=== PATIENT | female | born 1955 | race Caucasian/White ===

== ENCOUNTER 2023-06-07 12:53 | Emergency (ER) | payer MEDICARE, SELFPAY ==
[2023-06-07 13:35] VITALS: BP 167/82; PULSE 89; RESP 18; TEMP 36.6; O2SAT 98
--- NOTE | 2023-06-07 14:18 | ED.EAR ---
HPI - Ear Problem General Chief complaint: Ear Stated complaint: bilateral ear discomfort Time Seen by Provider: 06/07/23 14:10 Source: patient and RN notes reviewed Mode of arrival: ambulatory Limitations: no limitations History of Present Illness HPI Narrative: Patient presents today complaining of bilateral ear muffling. 2-3 days ago she developed some dizziness, lasted for 24-48 hours before completely resolving. Yesterday she developed muffling in both of her ears. Denies pain or drainage. She denies any additional symptoms to include cough, congestion, rhinorrhea, sinus pressure. She has been taking some ibuprofen without relief of symptoms. Related Data Home Medications Medication Instructions Recorded Confirmed pravastatin 40 mg tablet 40 mg PO DAILY 06/07/23 06/07/23 Allergies Allergy/AdvReac Type Severity Reaction Status Date / Time No Known Allergies Allergy Verified 06/07/23 14:24 Review of Systems Review of Systems: CONSTITUTIONAL: Denies body aches, fever, chills, or sweats. EYES: Denies visual changes, redness, or discharge. ENT: Denies rhinorrhea, congestion, sore throat, or otalgia.+ ear muffling CARDIOVASCULAR: Denies chest pain, palpitations, or edema. RESPIRATORY: Denies cough or dyspnea. GASTROINTESTINAL: Denies abdominal pain, nausea, vomiting, or diarrhea. GENITOURINARY: Denies dysuria or hematuria. SKIN: Denies rash, itching, or wounds. MUSCULOSKELETAL: Denies back pain, joint pain, or myalgia. NEUROLOGIC: Denies headache, numbness, tingling, or weakness. PSYCH: Denies depression or anxiety. [facility] Past Medical History Medical History (Updated 06/07/23 @ 14:23 by Madiha Barajas, [facility], ) High cholesterol Comments At time of signature, I have reviewed and agree with nursing past medical, surgical, social and family history unless otherwise noted. Please see nursing chart for further information. There is no relevant family history pertinent to the presenting complaint Exam Narrative: GENERAL: Well-appearing, well-nourished, and in no acute distress. HEAD: Normocephalic, atraumatic. EYES: EOMI. No redness or drainage. Conjunctivae normal. ENT: Mucous membranes pink and moist. Nares clear. No rhinorrhea. Left TM normal. Right TM erythematous and bulging with purulent material. NECK: Normal AROM. CHEST: No respiratory distress. EXTREMITIES: Normal range of motion. No edema. SKIN: Warm, dry, no rash. Capillary refill normal. NEURO: No focal deficits. Alert and oriented x3. Gait steady. PSYCH: Normal affect. No signs of depression or anxiety. Course Course Level of Care: Express Care Visit Vital Signs Vital signs: Vital Signs Temperature 97.9 F 06/07/23 13:35 Pulse Rate 89 06/07/23 13:35 Respiratory Rate 18 06/07/23 13:35 Blood Pressure 167/82 H 06/07/23 13:35 Pulse Oximetry 98 06/07/23 13:35 Oxygen Delivery Room Air 06/07/23 13:35 Temperature 97.9 F 06/07/23 13:35 Pulse Rate 89 06/07/23 13:35 Respiratory Rate 18 06/07/23 13:35 Blood Pressure 167/82 H 06/07/23 13:35 Pulse Oximetry 98 06/07/23 13:35 Oxygen Delivery Room Air 06/07/23 13:35 Reviewed. Pt has been instructed to follow up with her PCP regarding her elevated blood pressure today. Medical Decision Making MDM Narrative Medical decision making narrative: Exam consistent with right otitis media. Will treat with a course of amoxicillin. No additional testing indicated at this time. Anticipatory guidance given. Differential Diagnosis Differential Diagnosis: Otitis media, otitis externa, ruptured TM, serous otitis, eustachian tube dysfunction, cerumen impaction Vital Signs Vital Signs: Vital Signs Temperature 97.9 F 06/07/23 13:35 Pulse Rate 89 06/07/23 13:35 Respiratory Rate 18 06/07/23 13:35 Blood Pressure 167/82 H 06/07/23 13:35 Pulse Oximetry 98 06/07/23 13:35 Oxygen Delivery Room Air 06/07/23 13:35 Temperat
== END 2023-06-07 14:28 | disposition home or self-care (01) ==
PROVIDERS: Emergency Provider Nurse Practitioner; PCP Family Medicine
DX: H66.001 Acute suppurative otitis media without spontaneous rupture of ear drum, right ear (principal); E78.00 Pure hypercholesterolemia, unspecified
CPT/HCPCS: 99213; G0463